=== PATIENT | female | born 1960 | race Caucasian/White ===

== ENCOUNTER → 2019-09-23 | Outpatient (CLI) | payer OTHER ==
[~2019-09-23] MED LIST: AMBIEN10 MG PO; ASPIR 8181 MG PO; FLONASE; INHALER INH; XANAX2 MG PO; ZYRTEC10 MG PO
--- NOTE | 2019-09-23 11:09 | Diagnostic Imaging Report ---
EXAM: US ABDOMEN COMPLETE DATE: 09/23/2019 10:21 AM INDICATION: Chronic hepatitis C COMPARISON: None TECHNIQUE: Transverse and longitudinal ibanez scale and color doppler sonographic images of the upper abdomen were obtained. FINDINGS: There is no evidence of fluid or masses seen in the area of clinical concern in the right lower quadrant. LIVER 12.1 cm in the right midclavicular line. Normal echogenicity of the liver with normal contour, no masses. SPLEEN 9.7 cm in maximum diameter. Normal echogenicity, no masses. GALLBLADDER Status post cholecystectomy. BILE DUCTS No intra nor extra-hepatic biliary dilation. Common bile duct measures 4 mm PANCREAS: Visualized portions are normal. RIGHT KIDNEY: 9.7 cm Echogenicity: Normal Collecting System: No hydronephrosis Stones: None Cyst/Mass: None LEFT KIDNEY: 9.4 cm Echogenicity: Normal Collecting System: No hydronephrosis Stones: None Cyst/Mass: None VESSELS: Aorta: Visualized portions are within normal size limits Inferior Vena Cava: Visualized portions are normal Main Portal Vein: 0.7 cm, normal size with hepatopetal flow. FREE FLUID: None IMPRESSION: No focal liver lesions. No hydronephrosis or renal calculi. Status post cholecystectomy. Signed by: Mary Ellen Beverly MD on 09/23/2019 11:05 AM
== END ==
LOC: US 10:12
PROVIDERS: ATTEND Internal Medicine Gastroenterology
DX: B18.2 Chronic viral hepatitis C (principal)
CPT/HCPCS: 76700

== ENCOUNTER → 2019-10-05 | Day surgery (SDC) | payer MEDICAID, OTHER ==
[2019-09-23 13:46] LABS: HEMATOCRIT 35.5 % (34.2-44.1); HEMOGLOBIN 12.2 g/dL (12.0-16.0); MEAN CORPUSCULAR HEMOGLOBIN 31.5 pg (28-32); MEAN CORPUSCULAR HGB CONC 34.4 g/dL (31-35); MEAN CORPUSCULAR VOLUME 91.7 fL (81-99); RED BLOOD COUNT 3.87 x10e6/uL (3.6-5.1)
[2019-09-23 13:47] LABS: BASOPHILS % 1.1 % (0.0-1.0); EOSINOPHILS # (AUTO) 0.1 (0.0-0.4); EOSINOPHILS % 1.6 % (0.0-6.0); LYMPHOCYTES # (AUTO) 3.3 (1.0-3.2); LYMPHOCYTES % 43.7 % (18.0-39.1); MONOCYTES # (AUTO) 0.6 (0.2-0.8); MONOCYTES % 7.8 % (4.4-11.3); NEUTROPHILS # (AUTO) 3.5 (2.1-6.9); NEUTROPHILS % 45.5 % (38.7-80.0); PLATELET COUNT 233 x10e3/uL (140-360); RED CELL DISTRIBUTION WIDTH 11.4 % (11.7-14.4)
[2019-09-23 13:48] LABS: BASOPHILS # (AUTO) 0.1 (0.0-0.1)
[~2019-10-05] MED LIST changes: +HYOSCYAMINE 0.125 MG TAB ONE; +MIDAZOLAM HCL 2 MG/2 ML VIAL ONE; +PROPOFOL IV EMULSION 10 MG/ML 50 ML VIAL ONE
--- OUTSIDE RECORDS SUMMARY | 2019-10-05 10:37 | XMS REPORT ---
[facility] Address Unknown Phone Unavailable Care Team Providers Care Specialty Sales Consultant Name Role Phone CASI MANE Unavailable Unavailable Problems This patient has no known problems. Allergies, Adverse Reactions, Alerts This patient has no known allergies or adverse reactions. Medications This patient has no known medications. Results Test Description Test Time Test Comments Text Results Atomic Results Result Comments US ABDOMEN COMPLETE 2019-09-23 11:04:00 [place] [id number] Patient Name: LOLITA LAGUNAS MR #: [id number] : 1960 Age/Sex: 59/F Req #: [id number] Adm Physician: Ordered by: CASI MANE MD Report #: [id number] Location: US Room/Bed: Procedure: [id number] US/US ABDOMEN COMPLETE Exam Date: Exam Time: REPORT STATUS: Signed EXAM: US ABDOMEN COMPLETE DATE: 09/23/2019 10:21 AM INDICATION: Chronic hepatitis C COMPARISON: None TECHNIQUE: Transverse and longitudinal ibanez scale and color doppler sonographic images of the upper abdomen were obtained. FINDINGS: There is no evidence of fluid or masses seen in the area of clinical concern in the right lower quadrant. LIVER 12.1 cm in the right midclavicular line. Normal echogenicity of the liver with normal contour, no masses. SPLEEN 9.7 cm in maximum diameter. Normal echogenicity, no masses. GALLBLADDER Status post cholecystectomy. BILE DUCTS No intra nor extra-hepatic biliary dilation. Common bile duct measures 4 mm PANCREAS: Visualized portions are normal. RIGHT KIDNEY: 9.7 cm Echogenicity: Normal Collecting System: No hydronephrosis Stones: None Cyst/Mass: None LEFT KIDNEY: 9.4 cm Echogenicity: Normal Collecting System: No hydronephrosis Stones: None Cyst/Mass: None VESSELS: Aorta: Visualized portions are within normal size limits Inferior Vena Cava: Visualized portions are normal Main Portal Vein: 0.7 cm, normal size with hepatopetal flow. FREE FLUID: None IMPRESSION: No focal liver lesions. No hydronephrosis or renal calculi. Status post cholecystectomy. Signed by: Jesenia Mata MD on 09/23/2019 11:05 AM Dictated By: JESENIA MATA MD 1105 Transcribed By: PRABHU on 09/23/19 1105 COPY TO: CASI MANE MD 3C ABSC Tube 2019-08-20 14:17:05 SC1 IS (test code=SC1 IS) NT SC2 IS (test code=SC2 IS) NT SC3 IS (test code=SC3 IS) NT SC1 37 (test code=SC1 37) 0 SC2 37 (test code=SC2 37) 0 SC3 37 (test code=SC3 37) 0 SC1 AHG (test code=SC1 AHG) 0 SC2 AHG (test code=SC2 AHG) 0 SC3 AHG (test code=SC3 AHG) 0 SC1 CC (test code=SC1 CC) 2+ SC2 CC (test code=SC2 CC) 2+ SC3 CC (test code=SC3 CC) 2+ Antibody Screen (3C) (test code=Antibody Screen (3C)) Negative ABSC ABORh [id number] 14:08:58* Test Item Value Reference Range Comments Methodology (test code=Methodology) Test-Tube(TT) Anti-A (test code=Anti-A) 4+ Anti-B (test code=Anti-B) 0 Anti-AB (test code=Anti-AB) NT Anti-D (test code=Anti-D) 0 ABORh Retype (test code=ABORh Retype) A NEG [id number] 14:07:29* Test Item Value Reference Range Comments Previous History (test code=Previous History) No Prev History BBID (test code=BBID) [id number] Methodology (test code=Methodology) Test-Tube(TT) Anti-A (test code=Anti-A) 4+ Anti-B (test code=Anti-B) 0 Anti-D (test code=Anti-D) 0 DCon (test code=DCon) NT A1 (test code=A1) 0 B cells (test code=B cells) 4+ ABORh (test code=ABORh) A NEG HCG Qualitative [id number] 12:50:31* Test Item Value Reference Range Comments HCG, Serum Qual (test code=HCG, Serum Qual) Negative Lot # (test code=Lot #) [id number] Expiration Dt (test code=Expiration Dt) 2020-12-31 Neg Control (test code=Neg Control) Negative Pos Control (test code=Pos Control) Positive Internal QC (test code=Internal QC) Acceptable Complete Blood Count with [id number] 12:36:09* Test Item Value Reference Range Comments WBC (test code=WBC) 8.7 x10 4.4-10.5 RBC (test code=RBC) 3.97 x10 4.10-5.70 Hgb (test code=Hgb) 12.7 g/dL 13.4-17.4 Hct (test code=Hct) 36.6 % 38.7-52.0 MCV (test code=MCV) 92.20 fL 80.00-100.00 MCHC (test code=MCHC) 34.70 g/dL 32.00-37.50 MCH (test code=MCH) 32.0 pg 27.0-32.5 RDW CV (test code=RDW CV) 11.6 % 11.5-14.5 Platelets (test code=Platelets) 211.0 x10 140.0-440.0 MPV (test code=MPV) 10.2 fL Slide Review (test code=Slide Review) Auto Auto Result created by [email or web address] nRBC (test code=nRBC) 0 NRBC Abs (test code=NRBC Abs) 0.00 x10 IPF (test code=IPF) 0 % Automated [id number] 12:36:09* Test Item Value Reference Range Comments Neutro Auto (test code=Neutro Auto) 60.5 % 36.0-70.0 Lymph Auto (test code=Lymph Auto) 30.2 % 12.0-44.0 Randall Auto (test code=Randall Auto) 6.8 % 0.0-11.0 Eos, Auto (test code=Eos, Auto) 1.3 % 0.0-7.0 Basophil Auto (test code=Basophil Auto) 1.0 % 0.0-2.0 Neutro Absolute (test code=Neutro Absolute) 5.2 x10 1.6-7.4 Lymph Absolute (test code=Lymph Absolute) 2.62 x10 .50-4.60 Randall Absolute (test code=Randall Absolute) .59 x10 .00-1.20 Eos Absolute (test code=Eos Absolute) 0.11 x10 0.00-0.74 Baso Absolute (test code=Baso Absolute) 0.09 x10 0.00-0.21 IG [id number] 12:36:09* Test Item Value Reference Range Comments IG (test code=IG) 0.2 % 0.0-5.0 IG Abs (test code=IG Abs) 0 x10 Complete Blood Count with [id number] 12:36:09* Test Item Value Reference Range Comments WBC (test code=WBC) 8.7 x10 4.4-10.5 RBC (test code=RBC) 3.97 x10 3.75-5.20 Reference range changed due to change in patient's sex at 05:34:02. Normal Low changed from 4.10 to 3.75. Normal High changed from 5.70 to 5.20. Result flag changed from L to within range. Hgb (test code=Hgb) 12.7 g/dL 12.2-14.8 Reference range changed due to change in patient's sex at 05:34:02. Normal Low changed from 13.4 to 12.2. Normal High changed from 17.4 to 14.8. Result flag changed from L to within range. Hct (test code=Hct) 36.6 % 36.5-44.4 Reference range changed due to change in patient's sex at 05:34:02. Normal Low changed from 38.7 to 36.5. Normal High changed from 52.0 to 44.4. Result flag changed from L to within range. MCV (test code=MCV) 92.20 fL 80.00-100.00 MCHC (test code=MCHC) 34.70 g/dL 32.00-37.50 MCH (test code=MCH) 32.0 pg 27.0-32.5 RDW CV (test code=RDW CV) 11.6 % 11.5-14.5 Platelets (test code=Platelets) 211.0 x10 140.0-440.0 MPV (test code=MPV) 10.2 fL Slide Review (test code=Slide Review) Auto Auto Result created by [email or web address] nRBC (test code=nRBC) 0 NRBC Abs (test code=NRBC Abs) 0.00 x10 IPF (test code=IPF) 0 %
[2019-10-05 16:10] VITALS: BP 127/81
--- NOTE | 2019-10-05 21:48 | Operative Report ---
DATE OF PROCEDURE: 10/05/2019 SURGEON: John Clancy MD PROCEDURE: Colonoscopy with polypectomy note. INDICATIONS FOR COLONOSCOPY: Colorectal cancer screening. MEDICATIONS: The patient was done under MAC, please see anesthesiologist's note. PROCEDURE IN DETAIL: With the patient in left lateral decubitus position, a flexible fiberoptic Olympus colonoscope was inserted into the rectum with ease and advanced all the way to the cecum. Scope was then withdrawn slowly. Mucosa overlying the cecum and ascending colon appeared to be within normal limits. An approximately 8 mm sessile polyp was removed per hot snare polypectomy from the proximal transverse colon. The rest of the transverse appeared to be within normal limits. Diverticular disease was noted to involve the distal descending and the sigmoid. One polyp was hot snared from the rectum. The scope was then retroflexed into the distal rectum and small internal hemorrhoids were noted none of which was actively bleeding. The scope was then straightened out it was subsequently withdrawn. The patient tolerated procedure well. IMPRESSION: 1. Transverse colon polyp, hot snare. 2. Diverticulosis. 3. Rectal polyp, hot snare. 4. Internal hemorrhoids none actively bleeding. PLAN: Follow up histology. Initiate high-fiber, low-fat diet. Initiate high-fiber supplement. The patient might benefit from a followup colonoscopy in 3 to 5 years. John Clancy MD [facility] [place] /[id number] cc: John Clancy MD
== END | disposition home or self-care (01) ==
LOC: OR 10:32
PROVIDERS: ATTEND Internal Medicine Gastroenterology
DX: Z12.11 Encounter for screening for malignant neoplasm of colon (principal); D12.8 Benign neoplasm of rectum; K57.30 Diverticulosis of large intestine without perforation or abscess without bleeding; K59.09 Other constipation; K64.8 Other hemorrhoids; B18.2 Chronic viral hepatitis C; I25.10 Atherosclerotic heart disease of native coronary artery without angina pectoris; J45.909 Unspecified asthma, uncomplicated; I25.2 Old myocardial infarction; F41.9 Anxiety disorder, unspecified; Z88.6 Allergy status to analgesic agent; Z01.810 Encounter for preprocedural cardiovascular examination; Z01.812 Encounter for preprocedural laboratory examination; Z79.82 Long term (current) use of aspirin; Z85.828 Personal history of other malignant neoplasm of skin; Z95.5 Presence of coronary angioplasty implant and graft
CPT/HCPCS: 36415; 45385; 85025; 88305; 93005; J2250; J2704